=== PATIENT | female | born 1935 | race Caucasian/White ===

== ENCOUNTER 2018-04-07 14:33 | Emergency (ER) | payer MEDICARE ==
[~2018-04-07] VITALS: Ht 154.9 cm; Wt 51.7 kg
[~2018-04-07 14:33] MED LIST: ACETAMINOPHEN650 M2 PO; ACETAMINOPHEN650 MG RC; AMLODIPINE BESYL5 MG PO; CALCIUM 500+D1 EACH PO; LEVOTHYROXINE50 MCG PO; MAGNESIUM OXID400 MG PO; MULTI-VITAMIN1 EACH PO; OMEGA 3 1,0001 EACH PO; PROBIOTIC & AC1 EACH PO; STOOL SOFTENER240 MG PO; SULFAMETHOXAZO1 EAC1 PO; VITAMIN B-121000 MC2 SL; VITAMIN D31000 UNIT PO; VITAMIN E400 UNIT PO
--- OUTSIDE RECORDS SUMMARY | 2018-04-07 14:36 | XMS REPORT ---
Author Author [facility] Address Unknown Phone Unavailable Care Team Providers Care Customer Contact Sales Associate Name Role Phone Kristi MCKEON Unavailable Unavailable Problems This patient has no known problems. Allergies, Adverse Reactions, Alerts This patient has no known allergies or adverse reactions. Medications This patient has no known medications. Results Test Description Test Time Test Comments Text Results Atomic Results Result Comments CHEST 2 VIEWS [place] [address] Patient Name: GUSTAVO HINES MR #: [id number] : 1935 Age/Sex: 82/F Req #: [id number] Adm Physician: Ordered by: WATSON MCKEON MD Report #: [id number] Location: OR Room/Bed: Procedure: [id number] DX/CHEST 2 VIEWS Exam Date: 01/21/17 Exam Time: 1115 REPORT STATUS: Signed PROCEDURE: Frontal and lateral views of the chest. COMPARISON: None. INDICATIONS: PRE OPERATIVE CHEST X-RAY HERNIA REPAIR FINDINGS: Lines/tubes: None. Lungs: The lungs are well inflated and clear. There is no evidence of pneumonia or pulmonary edema. Pleura: There is no pleural effusion or pneumothorax. Heart and mediastinum: The heart and the mediastinum are normal. Atherosclerotic considerations in the aorta. Bones: No acute bony abnormality. Calcific densities in bilateral glenohumeral joints, likely loose joint bodies. Previous right rib fracture deformities. IMPRESSION: No acute cardiopulmonary disease. Dictated by: Alayna Monroy M.D. on 01/21/2017 at 11:45 Electronically approved by: Alayna Monroy M.D. on 01/21/2017 at 11:45 Dictated By: ALAYNA MONROY MD [id number] Transcribed By: PAVAN on 01/21/17 1145 COPY TO: WATSON MCKEON MD
[2018-04-07] MEDS ORDERED: SODIUM CHLORIDE 0.9% 500ML 500 ML IV STA (15:08)
[2018-04-07] MEDS ORDERED: FAMOTIDINE 20 MG/2 ML VIAL IV ONE (15:15)
[2018-04-07] MEDS ORDERED: ONDANSETRON HCL INJ 2 MG/ML VIAL IV ONE (15:15)
[2018-04-07] MEDS ORDERED: KETOROLAC TROMETHAMINE 30 MG/ML VIAL IV ONE (15:15)
[2018-04-07] MEDS ORDERED: MORPHINE SULFATE 2 MG/ML SYR IV ONE (15:30)
[2018-04-07 15:36] LABS: BASOPHILS % 0.4 % (0.0-1.0); EOSINOPHILS # (AUTO) 0.1 (0.0-0.4); EOSINOPHILS % 1.6 % (0.0-6.0); HEMOGLOBIN 13.1 g/dL (12.0-16.0); LYMPHOCYTES # (AUTO) 1.5 (1.0-3.2); LYMPHOCYTES % 27.5 % (18.0-39.1); MEAN CORPUSCULAR HEMOGLOBIN 33.2 pg (28-32); MEAN CORPUSCULAR HGB CONC 32.8 g/dL (31-35); MEAN CORPUSCULAR VOLUME 101.5 fL (81-99); MONOCYTES # (AUTO) 0.5 (0.2-0.8); MONOCYTES % 8.2 % (4.4-11.3); NEUTROPHILS # (AUTO) 3.5 (2.1-6.9); NEUTROPHILS % 61.9 % (38.7-80.0); PLATELET COUNT 220 x10e3/uL (140-360); RED BLOOD COUNT 3.94 x10e6/uL (3.6-5.1); RED CELL DISTRIBUTION WIDTH 12.6 % (11.7-14.4)
[2018-04-07 15:51] LABS: ALANINE AMINOTRANSFERASE 9 IU/L (0-55); ALBUMIN 3.9 g/dL (3.5-5.0); ALBUMIN/GLOBULIN RATIO 1.2 (0.8-2.0); ALKALINE PHOSPHATASE 63 IU/L (40-150); AMYLASE 44 U/L (25-125); ANION GAP 12.7 mmol/L (8-16); BLOOD UREA NITROGEN 11 mg/dL (7-26); BUN/CREATININE RATIO 15 (6-25); CALCIUM 9.8 mg/dL (8.4-10.2); CARBON DIOXIDE 26 mmol/L (22-29); CHLORIDE 102 mmol/L (98-107); CREATINE KINASE 122 IU/L (29-168); CREATININE, SERUM 0.74 mg/dL (0.57-1.11); EST GLOMERULAR FILTRATION RATE > 60 ML/MIN (60-); GLUCOSE 107 mg/dL (74-118); LIPASE 10 U/L (8-78); POTASSIUM 3.7 mmol/L (3.5-5.1); SODIUM 137 mmol/L (136-145)
[2018-04-07 15:57] LABS: CLARITY,URINE CLEAR (CLEAR); COLOR,URINE YELLOW (YELLOW)
--- NOTE | 2018-04-07 15:57 | Diagnostic Imaging Report ---
Examination: Single AP view of the chest. COMPARISON: None. INDICATION: Chest pain, look for CHF IMPRESSION: 1. Lines and Tubes: None 2. Lungs are well-inflated. No consolidation or effusion. Oval-shaped density in the retrocardiac space may represent summation of shadows. Recommend chest PA and lateral for further evaluation. 3. Cardiomediastinal silhouette is normal. Pulmonary vasculature is normal. Tortuous aorta with atherosclerotic calcification of the arch. 4. No acute bony abnormalities. Signed by: Dr. Johan Boudreaux M.D. on 04/07/2018 3:54 PM
[2018-04-07 15:58] LABS: BILIRUBIN,URINE NEGATIVE (NEGATIVE); KETONES,URINE NEGATIVE (NEGATIVE); LEUKOCYTE ESTERASE ,URINE 1+ (NEGATIVE); NITRITE,URINE NEGATIVE (NEGATIVE); PROTEIN,URINE DIPSTICK NEGATIVE (NEGATIVE); URINE UROBILINOGEN 0.2 mg/dL (0.2 - 1)
[2018-04-07 15:59] LABS: BACTERIA,URINE FEW /HPF; EPITHELIAL CELLS,URINE FEW /LPF; RBC,URINE 0-5 /HPF (0-5)
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
[2018-04-07] MEDS ORDERED: CEFTRIAXONE SOD 1 GM VIAL IV ONE (17:15)
[2018-04-07] MEDS ORDERED: CEFTRIAXONE SOD 1 GM VIAL ONE (17:41)
[2018-04-07] MEDS ORDERED: CEFDINIR300 MG PO (17:55)
[2018-04-07] MEDS ORDERED: TYLENOL WITH C1 EACH PO (17:55)
[2018-04-07 17:57] VITALS: BP 162/71
== END 2018-04-07 18:38 | disposition home or self-care (01) ==
LOC: ER 14:33
DX: M54.5 Low back pain (principal); S39.012A Strain of muscle, fascia and tendon of lower back, initial encounter; M51.26 Other intervertebral disc displacement, lumbar region; V54.6XXA Passenger in pick-up truck or van injured in collision with heavy transport vehicle or bus in traffic accident, initial encounter; Y92.488 Other paved roadways as the place of occurrence of the external cause
CPT/HCPCS: 36415; 71045; 72131; 80053; 81001; 82150; 82550; 82553; 83690; 83880; 84484; 85025; 93005; 99284; J0696; J1885; J2270; J2405; J7040

== ENCOUNTER → 2018-05-25 | Day surgery (SDC) | payer MEDICARE ==
[~2018-05-25] MED LIST changes: +CEFDINIR300 MG PO; +HYOSCYAMINE SULFATE 0.5 MG/ML INJ ONE; +PROPOFOL IV EMULSION 10 MG/ML 50 ML VIAL ONE; +TYLENOL WITH C1 EACH PO
[2018-05-25 12:10] VITALS: BP 137/76
[2018-05-25 12:44] LABS: C DIFFICILE TOXIN A&B AMP PROB NEGATIVE (NEGATIVE); WBC,FECAL (FECAL LACTOFERRIN) NEGATIVE (NEGATIVE)
--- NOTE | 2018-05-25 13:30 | Operative Report ---
DATE OF PROCEDURE: May 25, 2018 REFERRING PHYSICIAN: Dr. Darrell Liz PROCEDURES PERFORMED 1. Esophagogastroduodenoscopy with biopsies. 2. Colonoscopy with biopsies. INDICATIONS FOR EGD: Acid reflux and history of melena. INDICATIONS FOR COLONOSCOPY: Diarrhea, history of bright red blood per rectum and weight loss. MEDICATION: Patient was done under MAC. Please see anesthesiologist's note. PROCEDURE: With the patient in the left lateral decubitus position, the flexible fiberoptic Olympus gastroscope was introduced into the esophagus under direct visualization without any difficulty. There was some patchy erythema noted in the distal esophagus. The scope was then advanced with ease into the stomach traversing an approximately 5 cm hiatal hernia. Mucosa overlying the antrum and body revealed some patchy erythema low-grade to moderate edema, and biopsies were obtained and sent to stain for H. pylori. The pylorus was of normal contour and shape. It was intubated with ease. The scope was advanced all the way to the 2nd portion of the duodenum. The scope was then withdrawn slowly. Mucosa overlying the proximal 2nd portion and the duodenal bulb appeared to be within normal limits. The scope was withdrawn back into the stomach and retroflexed. The previously described large hiatal hernia was also noted in the retroflexed position. The scope was then straightened out. It was subsequently withdrawn. Patient tolerated the procedure well. IMPRESSION 1. Distal esophagitis, mild. 2. Large hiatal hernia, approximately 5 cm. 3. Gastritis, biopsied. Biopsies sent to stain for Helicobacter pylori. PLAN: Follow up histology. Initiate Protonix 40 mg 1 p.o. q.a.m. a.c. Patient was then turned around. After adequate lubrication of the anal canal, a flexible fiberoptic Olympus colonoscope was inserted into the rectum with ease and advanced all the way to the cecum. Diverticular disease was noted throughout. The scope was then withdrawn slowly. Mucosa overlying the cecum appeared to be within normal limits. Other than for diverticular disease, the mucosa overlying the ascending and the transverse grossly appeared to be within normal limits. There was some patchy mild inflammatory changes noted in the left colon. Random biopsies were obtained. The scope was then retroflexed into the distal rectum and small internal hemorrhoids were noted, none of which was actively bleeding. The scope was then straightened out. It was subsequently withdrawn after securing an adequate stool specimen that was sent for the appropriate stool studies. Patient tolerated the procedure well. IMPRESSION 1. Dumont diverticulosis. 2. Mild patchy left-sided colitis. 3. Internal hemorrhoids, none actively bleeding. PLAN: Follow up histology. Follow up stool studies. Initiate Bentyl 20 mg 1 p.o. t.i.d. VSL #3 one p.o. daily. No followup colonoscopy is necessary in this patient. Job#: [id number] [place] cc:TRINY LIZ DO
== END | disposition home or self-care (01) ==
LOC: OR 09:48
PROVIDERS: ATTEND Internal Medicine Gastroenterology
DX: K29.70 Gastritis, unspecified, without bleeding (principal); K51.50 Left sided colitis without complications; K21.0 Gastro-esophageal reflux disease with esophagitis; K44.9 Diaphragmatic hernia without obstruction or gangrene; K57.30 Diverticulosis of large intestine without perforation or abscess without bleeding; K64.8 Other hemorrhoids; R63.4 Abnormal weight loss; I10 Essential (primary) hypertension; R42 Dizziness and giddiness; N39.0 Urinary tract infection, site not specified; E07.9 Disorder of thyroid, unspecified; R93.3 Abnormal findings on diagnostic imaging of other parts of digestive tract; Z96.649 Presence of unspecified artificial hip joint
CPT/HCPCS: 43239; 45380; 83630; 83993; 87045; 87177; 87328; 87493; 88305; 88312; J1980; 45378